=== PATIENT | female | born 1940 | race Caucasian/White ===

== ENCOUNTER 2017-07-23 12:44 | Emergency (ER) | payer MEDICARE, BC ==
[~2017-07-23] VITALS: Ht 165.1 cm; Wt 99.8 kg
[2017-07-23] MEDS ORDERED: METFORMIN HCL500 MG PO (13:00)
[2017-07-23] MEDS ORDERED: ATENOLOL 25 MG25 M1 PO (13:01)
[2017-07-23] MEDS ORDERED: NORCO 5-325 TA1 EACH PO (13:50)
[2017-07-23] MEDS ORDERED: FLEXERIL PO (13:50)
[2017-07-23 15:00] VITALS: BP 189/89
== END 2017-07-23 15:00 | disposition home or self-care (01) ==
LOC: M.ERS 12:44
DX: S86.812A Strain of other muscle(s) and tendon(s) at lower leg level, left leg, initial encounter (principal); R07.81 Pleurodynia; E11.9 Type 2 diabetes mellitus without complications; I10 Essential (primary) hypertension; Z88.2 Allergy status to sulfonamides; Z88.0 Allergy status to penicillin; W10.8XXA Fall (on) (from) other stairs and steps, initial encounter; Y93.89 Activity, other specified; Y92.89 Other specified places as the place of occurrence of the external cause; Y99.8 Other external cause status